=== PATIENT | male | born 1985 | race African-American/Black ===

== ENCOUNTER 2018-04-20 18:18 | Emergency (ER) | payer MEDICAID ==
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
== END 2018-04-20 23:53 ==
LOC: JP.ED 18:18
DX: F20.1 Disorganized schizophrenia (principal); R45.851 Suicidal ideations; I10 Essential (primary) hypertension; Z79.899 Other long term (current) drug therapy
CPT/HCPCS: 36415; 80053; 80305-QW; 81001; 85025; 99285